=== PATIENT | male | born 1990 | race Caucasian/White ===

== ENCOUNTER 2021-10-15 16:02 | Emergency (ER) | payer SELFPAY ==
[~2021-10-15] VITALS: Ht 175.3 cm; Wt 65.0 kg
[2021-10-15 16:14] VITALS: BP 147/86
[2021-10-15] MEDS ORDERED: PENI500T PO (16:36)
--- NOTE | 2021-10-15 16:36 | PHYS DOC ---
Past History Past Surgical History: No Surgical History (RAUL JULES APRN) Alcohol Use: None (RAUL JULES APRN) General Adult EDM: Chief Complaint: DENTAL PROBLEM HPI: HPI: Patient is a 30-year-old male presents with left lower dental pain. Patient has facial swelling to left jaw. "I took a couple of Keflex is from a friend and it started to get better but then it come back". Patient states that symptoms started yesterday. Denies taking anything for pain. No fevers. No medical history. (RAUL JULES APRN) Review of Systems: Review of Systems: ROS At least 10 ROS systems have been reviewed and are negative except as documented in the HPI. General: Negative except as outlined in HPI above. Skin: Negative except as outlined in HPI above. HEENT: Negative except as outlined in HPI above. Neck: Negative except as outlined in HPI above. Respiratory: Negative except as outlined in HPI above.. Cardiovascular: Negative except as outlined in HPI above. Abdomen: Negative except as outlined in HPI above. : Negative except as outlined in HPI above. Back/MSK: Negative except as outlined in HPI above. Neuro: Negative except as outlined in HPI above. Psych: Negative except as outlined in HPI above. (RAUL JULES APRN) Allergies: Allergies: Allergies Coded Allergies Type Severity Reaction Last Updated Verified No Known Drug Allergies 10/15/21 No (RAUL JULES APRN) Physical Exam: PE: Constitutional: Well developed, well nourished, no acute distress, non-toxic appearance. HENT: bilateral external ears normal, oropharynx moist, no oral exudates, nose normal. Eyes: PERRLA, conjunctiva normal, no discharge. Neck: Normal range of motion, no tenderness, supple, no stridor. Cardiovascular:Heart rate regular rhythm, no murmur Lungs & Thorax: Bilateral breath sounds clear to auscultation Abdomen: Bowel sounds normal, soft, no tenderness, no masses, no pulsatile masses. Skin: Warm, dry, no erythema, no rash. Back: No tenderness, no CVA tenderness. Extremities: No tenderness, no cyanosis, no clubbing, ROM intact, no edema. Neurologic: Alert and oriented X 3, normal motor function, normal sensory functi on, no focal deficits noted. Psychologic: Affect normal, judgement normal, mood normal. (RAUL JULES APRN) Current Patient Data: Vital Signs: Vital Signs Date Time Temp Pulse Resp B/P (MAP) Pulse Ox O2 Delivery O2 Flow Rate FiO2 10/15/21 16:14 98.5 90 16 147/86 (106) 98 Room Air (RAUL JULES APRN) EKG: EKG: [] (RAUL JULES APRN) Radiology/Procedures: Radiology/Procedures: [] (RAUL JULES APRN) Heart Score: C/O Chest Pain: No Risk Factors: Risk Factors: DM, Current or recent (<one month) smoker, HTN, HLP, family history of CAD, obesity. Risk Scores: Score 0 - 3: 2.5% MACE over next 6 weeks - Discharge Home Score 4 - 6: 20.3% MACE over next 6 weeks - Admit for Clinical Observation Score 7 - 10: 72.7% MACE over next 6 weeks - Early Invasive Strategies (RAUL JULES APRN) Course & Med Decision Making: Course & Med Decision Making Pertinent Labs and Imaging studies reviewed. (See chart for details) [] 30-year-old male presents with left lower dental pain. Patient given ibuprofen for discomfort while in the ER. Sending patient home with an antibiotic. Advised patient to take the antibiotic as directed and in full. Patient needs to call his dentist tomorrow to make an appointment. Explained to him that it would not resolve without a dentist further evaluation. Patient verbalizes understanding of discharge instructions. Ibuprofen at home for pain. (RAUL JULES APRN) Course & Med Decision Making I was the Attending physician on the above date of service of this patient. This patient was evaluated, examined, treated, and dispositioned from the emergency department by the mid-level practitioner. Although I was working at the time , no assistance was requested. Electronically signed, Chandler Castaneda DO (CHANDLER CASTANEDA DO) Griffin Disclaimer: Griffin Disclaimer: This electronic medical record was generated, in whole or in part, using a voice recognition dictation system. (RAUL JULES APRN) Departure Departure: Impression: Primary Impression: Pain, dental Disposition: HOME / SELF CARE / HOMELESS Condition: STABLE Referrals: PCP,NO (PCP) Patient Instructions: Dental Abscess Additional Instructions: You are seen in the emergency room for dental pain. Sending home with prescription for antibiotic. Make sure you take it in full and as directed. Ibuprofen every 6-8 hours. These make your appointment for your dentist. Your tooth needs further management by a dentist. EMERGENCY DEPARTMENT GENERAL DISCHARGE INSTRUCTIONS Thank you for coming to [facility] (ED) today and trusting us with you care. We trust that you had a positivie experience in our Emergency Department. If you wish to speak to the department management, you may call the director at [phone]. YOUR FOLLOW UP INSTRUCTIONS ARE FOLLOWS: 1. Do you have a private Doctor? If you do not have a private doctor, please ask for a resource list of physicians or clinics that may be able to assist you with follow up care. 2. The Emergency Physician has interpreted your x-rays. The X-Ray specialist will also review them. If there is a change in the findings, you will be notified in 48 hours when at all possible. 3. A lab test or culture has been done, your results will be reviewed and you will be notified if you need a change in treatment. ADDITIONAL INSTRUCTIONS AND INFORMATION: 1. Your care today has been supervised by a physician who is specially trained in emergency care. Many problems require more than one evaluation for a complete diagnosis and treatment. We recommend that you schedule your follow up appointment as recommended to ensure complete treatment of you illness or injury. If you are unable to obtain follow up care and continue to have a problem, or if your condition worsens, we recommend that you return to the ED. 2. We are not able to safely determine your condition over the phone nor are we able to give sound medical advice over the phone. For these safety reasons, if you call for medical advice we will ask you to come to the ED for further evaluation. 3. If you have any questions regarding these discharge instructions please call the ED at [phone]. SAFETY INFORMATION: In the interest of safety, wellness, and injury prevention; we encourage you to wear your sealbelt, if you smoke; quite smoking, and we encourage family to use a protective helmet for bicycling and other sporting events that present an increased risk for head injury. IF YOUR SYMPTOMS WORSEN OR NEW SYMPTOMS DEVELOP, OR YOU HAVE CONCERNS ABOUT YOUR CONDITION; OR IF YOUR CONDITION WORSENS WHILE YOU ARE WAITING FOR YOUR FOLLOW UP APPOINTMENT; EITHER CONTACT YOUR PRIMARY CARE DOCTOR, THE PHYSICIAN WHOSE NAME AND NUMBER YOU WERE GIVEN, OR RETURN TO THE ED IMMEDIATELY. Scripts Penicillin V Potassium (PENICILLIN V POTASSIUM) 500 Mg Tablet 1 TAB PO BID for dental pain for 7 Days, #14 TAB Prov: RAUL JULES APRN 10/15/21 RAUL JULES APRN Oct 15, 2021 16:36 CHANDLER CASTANEDA DO Oct 19, 2021 06:44
[2021-10-15] MEDS ORDERED: IBUPROFEN 600 MG TABLET. PO ONE (16:45)
== END 2021-10-15 16:53 | disposition home or self-care (01) ==
LOC: ER 16:02
DX: K08.89 Other specified disorders of teeth and supporting structures (principal)
CPT/HCPCS: 99283-25